=== PATIENT | female | born 1945 | race Caucasian/White ===

== ENCOUNTER 2016-09-07 06:48 | Day surgery (SDC) | payer MEDICARE, OTHER ==
[~2016-09-07 06:48] MED LIST: BUPIVACAINE HCL 0.75% INJ/PF (7.5 MG/1 ML) 10 ML SDV OD PRN; KETOROLAC TROMETHAMINE 0.45% 4 DROP/0.4 ML DROPERETTE OD PRN; LIDOCAINE 4% INJ/PF (40 MG/ML) 5 ML AMPUL OD PRN
[2016-09-07] MEDS ORDERED: MIDAZOLAM 2 MG/2 ML INJ ONE (06:58)
[2016-09-07] MEDS ORDERED: PHENYLEPHRINE/KETOROLAC 1%-0.3% 4 ML VIAL ONE (07:07)
[2016-09-07] MEDS ORDERED: CHONDR SU A NA/HYALUR INTRAOC KIT (SURGICARE) ONE (07:07)
[2016-09-07] MEDS: TETRACAINE HCL 0.5% OPH SOLN 0.6 ML DROPERETTE OD PRN ×2 (07:13→08:00)
[2016-09-07] MEDS: TROPICAMIDE 1% OPH SOLN 3 ML OD PRN ×3 (07:13→07:29)
[2016-09-07] MEDS: BESIFLOXACIN HCL 0.6% OPH SUSP 5 ML BOTTLE OD PRN ×4 (07:13→08:31)
[2016-09-07] MEDS: CYCLOPENTOLATE 0.2%/PHENYLEPHRINE 1% OPH SOLN 2 ML OD PRN ×3 (07:13→07:29)
--- NOTE | 2016-09-07 08:53 | [facility] OPERATIVE REPORT E ---
[facility] Operative Report NAME: KYE URIBE AGE: 71Y DATE OF SURGERY: 09/07/2016 ROOM: PREOPERATIVE DIAGNOSIS: CATARACT, RIGHT EYE. POSTOPERATIVE DIAGNOSIS: CATARACT, RIGHT EYE. PROCEDURE; Phacoemulsification with posterior chamber intraocular lens, right eye. SURGEON: JAKOB COUGHLIN MD ANESTHESIA: Topical with MAC. INDICATIONS FOR SURGERY: Difficulty reading road signs. Best-corrected visual acuity 20/60. PROCEDURE: The patient was brought to the operating room and placed on the operative table. Following tetracaine drops, topical anesthesia was administered. This consisted of instrument wipe pledgets soaked in a solution of 4% Xylocaine mixed with 0.75% Marcaine in a 1:2 ratio. A 2 x 1 cm pledget was placed in the superior fornix. A 1 x 1 cm pledget was placed in the inferior fornix. The eye was patched shut for 5 minutes. The patch was removed. The eye was sterilely prepped and draped in the usual manner. Lid speculum was placed in the eye. The pledgets were removed. Then 4-0 black silk sutures were placed around the superior and the inferior rectus muscles to be used as traction. A conjunctival peritomy was made at the 10 o'clock position. Hemostasis was attained with bipolar cautery. A posterior limbal groove was created using a crescent knife and dissected anteriorly towards the cornea. A sharp point blade was used to create a paracentesis site at the 2 o'clock position. A 2.4 mm keratome was used to enter the anterior chamber through the groove. Viscoelastic was injected into the anterior chamber. An anterior capsulotomy was performed using Utrata forceps in a capsulorrhexis fashion. Hydrodissection and hydrodelineation were performed. Phacoemulsification was performed in [id number] technique. A total of 6.13 CDE phaco time was used. Following this, the I/A unit was used to remove residual cortex. Viscoelastic was injected into the capsular bag. Intraocular lens model SN60WF, 19.0 diopters, serial number [id number] was placed in the capsular bag. The I/A unit was used to remove residual viscoelastic. The wound was seen to be watertight under high and low pressure, and no sutures were placed. The intraocular lens was well centered. The pressure was adjusted in the eye to normal pressure. The 4-0 black silk sutures and lid speculum were removed. The eye was shielded after Besivance drops were placed. The patient tolerated the procedure well and was sent to the recovery room in good condition. DICTATING PHYSICIAN: JAKOB COUGHLIN M.D. [id number] PHY#: [id number] ID: [id number] JOB#: [id number] ACCT: [id number] cc:JAKOB COUGHLIN M.D. >
--- NOTE | 2016-09-07 08:58 | [facility] DISCHARGE SUMMARY E ---
[facility] Discharge Summary NAME: KYE URIBE AGE: 71Y ADMITTED: 09/07/2016 DISCHARGED: 09/07/2016 HOSPITAL COURSE: The patient is a 71-year-old who underwent uneventful cataract extraction with intraocular lens implant of the right eye on 09/07/2016. DISPOSITION: She will be discharged to home. DISCHARGE INSTRUCTIONS: She is instructed to resume preoperative medications, take Tylenol as needed for discomfort, to keep her eye shielded. To use Besivance, Durezol, and Ilevro at 3 p.m. and 8 p.m. Follow up in my office in 1 day. DICTATING PHYSICIAN: JAKOB COUGHLIN M.D. [id number] PHY#: [id number] ID: [id number] JOB#: [id number] ACCT: [id number] cc:JAKOB COUGHLIN M.D. >
== END 2016-09-07 09:15 | disposition home or self-care (01) ==
LOC: SC 06:48
PROVIDERS: ATTEND Ophthalmology
PROC: 08RJ3JZ Replacement of Right Lens with Synthetic Substitute, Percutaneous Approach (ICD-10-PCS; principal; 2016-09-07 08:00)
DX: H25.813 Combined forms of age-related cataract, bilateral (principal); H35.362 Drusen (degenerative) of macula, left eye; M19.90 Unspecified osteoarthritis, unspecified site; Z79.1 Long term (current) use of non-steroidal anti-inflammatories (NSAID)
CPT/HCPCS: 66984; V2632; J2250; J3490 ×3; A9270; C9447; 142